=== PATIENT | female | born 1950 | race Caucasian/White ===

== ENCOUNTER 2019-11-10 06:49 | Emergency (ER) | payer MEDICARE ==
[2019-11-10 06:55] VITALS: RESP 18; TEMP 98.1
[2019-11-10] MEDS ORDERED: methylPREDNISolone SOD SUCCI 125 MG/2 ML VIAL IM ONE (07:22)
[2019-11-10] MEDS ORDERED: KETOROLAC 60 MG/2 ML VIAL IM STA (07:22)
--- NOTE | 2019-11-10 07:26 | ED ---
Extremity Problem HPI - General Chief complaint: Extremity Problem,Nontraumatic Stated complaint: Lt Arm Pain Time Seen by Provider: 11/10/19 06:58 Source: patient, RN notes reviewed, old records reviewed Mode of arrival: ambulatory Limitations: physical limitation - History of Present Illness Initial comments: 69-year-old female presents emergency department today for concern for left wrist pain. Worsening symptoms over the past 3 days. Patient reports that she has shooting pain from her mid wrist to the third fourth and fifth digit. 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 She denies any recent fall or trauma to the hand or wrist. Patient states that she kept her hand up on a pill last name. She reports normal sensation distally. - Related Data Previous Rx's Medication Instructions Recorded Naproxen 500 mg PO BID #20 tablet 11/10/19 methylPREDNISolone Dose Pack 4 mg PO DIRECTED #21 package 11/10/19 [Medrol Dose Pack] Allergies Allergy/AdvReac Type Severity Reaction Status Date / Time [id number] Reductase Allergy Unknown Verified 11/10/19 06:56 Inhibitor Review of Systems ROS Statement: Those systems with pertinent positive or pertinent negative responses have been documented in the HPI. ROS Other: All systems not noted in ROS Statement are negative. Past Medical History Past Medical History: No Reported History Additional Past Medical History / Comment(s): bilateral hip brusitis History of Any Multi-Drug Resistant Organisms: None Reported Past Surgical History: Tonsillectomy Additional Past Surgical History / Comment(s): cataracts Past Psychological History: No Psychological Hx Reported Smoking Status: Never smoker Past Alcohol Use History: None Reported Past Drug Use History: None Reported General Exam - General Exam Comments Initial Comments: 69 year old female, no distress. Limitations: physical limitation General appearance: alert, in no apparent distress Head exam: Present: atraumatic, normocephalic, normal inspection Eye exam: Present: normal appearance, PERRL, EOMI. Absent: scleral icterus, conjunctival injection, periorbital swelling ENT exam: Present: normal exam, mucous membranes moist Neck exam: Present: normal inspection. Absent: tenderness, meningismus, lymphadenopathy Respiratory exam: Present: normal lung sounds bilaterally. Absent: respiratory distress, wheezes, rales, rhonchi, stridor Cardiovascular Exam: Present: regular rate, normal rhythm, normal heart sounds. Absent: systolic murmur, diastolic murmur, rubs, gallop, clicks GI/Abdominal exam: Present: soft, normal bowel sounds. Absent: distended, tenderness, guarding, rebound, rigid Extremities exam: Present: normal inspection, full ROM, normal capillary refill, other. Absent: tenderness, pedal edema, joint swelling, calf tenderness Left Upper Arm exam: Present: normal inspection, full ROM Elbow exam: Present: normal inspection, full ROM Forearm Wrist exam: Present: normal inspection, full ROM Hand Wrist exam: Present: normal inspection, full ROM, tenderness (Patient has tenderness over the anterior left wrist.) Back exam: Present: normal inspection Neurological exam: Present: alert, oriented X3, CN II-XII intact Psychiatric exam: Present: normal affect, normal mood Skin exam: Present: warm, dry, intact, normal color. Absent: rash Course Vital Signs 11/10/19 06:50 Temperature 98.1 F Pulse Rate 99 Respiratory 18 Rate Blood Pressure 139/61 O2 Sat by Pulse 97 Oximetry Medical Decision Making - Medical Decision Making 6-year-old female presents today for left wrist pain and pain shooting pain to the third fourth and fifth digit. Symptoms for the past 3 days. Previous hairdresser. 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 Discussed putting the Patient in a wrist cock-up splint as patient's symptoms are consistent with carpal tunnel. Discussed Patient follow-up with orthopedic and primary care doctor. Discharged with a short course of pain medicine and anti- inflammatories. All questions answered return parameters were discussed. - Radiology Data Radiology results: report reviewed There is no acute fracture dislocation left hand or wrist. Mild to moderate arthropathy of the first carpometacarpal joint and distal interphalangeal joints and a distribution most commonly in osteoarthritis. d Disposition Clinical Impression: Carpal tunnel syndrome of left wrist Disposition: HOME SELF-CARE Condition: Good Instructions (If sedation given, give patient instructions): Carpal Tunnel Surgery (DC), Paresthesia (ED) Additional Instructions: Please use medication as discussed. Please follow up with family doctor if symptoms have not improved over the next two days. Please return to the emergency room if your symptoms increase or worsen or for any other concerns. Prescriptions: methylPREDNISolone Dose Pack [Medrol Dose Pack] 4 mg PO DIRECTED #21 package Naproxen 500 mg PO BID #20 tablet Is patient prescribed a controlled substance at d/c from ED?: No Referrals: Nonstaff,Physician [Primary Care Provider] - 1-2 days Jameel Munoz MD [STAFF PHYSICIAN] - 1-2 days Time of Disposition: 08:28
--- NOTE | 2019-11-10 07:54 | XR ---
EXAMINATION TYPE: XR hand complete LT, XR wrist complete LT DATE OF EXAM: 11/10/2019 CLINICAL HISTORY: Left wrist and hand pain. History of carpal tunnel. TECHNIQUE: Frontal, lateral and oblique images of the left hand and wrist are obtained. COMPARISON: None FINDINGS: The patient's ring overlies the proximal left fourth phalanx and was not able to be removed and therefore obscures portions of the left fourth proximal phalanx. There is no acute fracture/dislocation evident in the left hand nor wrist. There is joint space narro wing of the first carpometacarpal joint with opposing surface sclerosis and small subcortical cysts. Mild osseous perforation change of the distal interphalangeal joints most pronounced of the fifth dis haim interphalangeal joint carpal carpal interspaces are maintained. No negative or positive ulnar gianni iance. The overlying soft tissue appears unremarkable. IMPRESSION: There is no acute fracture or dislocation in the left hand nor wrist. [id number] a rthropathy of the first carpometacarpal joint and distal interphalangeal joints, and a distribution m ost commonly seen in osteoarthritis.
[2019-11-10] MEDS ORDERED: Acetaminophen-Codeine 300-30mg TAB PO STA (08:32)
[2019-11-10 08:44] VITALS: BP 146/71; PULSE 91
== END 2019-11-10 08:45 | disposition home or self-care (01) ==
LOC: EC 06:49
DX: G56.02 Carpal tunnel syndrome, left upper limb (principal); Z88.8 Allergy status to other drugs, medicaments and biological substances
CPT/HCPCS: 73110; 73130; 99284; 29125; 96372 ×2; J2930; J1885